=== PATIENT | female | born 1950 | race African-American/Black ===

== ENCOUNTER 2016-11-26 05:33 | Inpatient (IN) ==
[2016-11-26] MEDS ORDERED: FUROSEMIDE 100 MG/10 ML VIAL IV STA (06:17)
[2016-11-26] MEDS ORDERED: HYDROmorphone 2 MG/1 ML VIAL IV STA (06:20)
[2016-11-26] MEDS ORDERED: ONDANSETRON 4 MG/2 ML VIAL IV STA (06:20)
--- NOTE | 2016-11-26 06:21 | EKG Report ---
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
[2016-11-26] MEDS ORDERED: HYDROmorphone 2 MG/1 ML VIAL ONE (06:22)
[2016-11-26] MEDS ORDERED: ONDANSETRON 4 MG/2 ML VIAL ONE (06:22)
[2016-11-26] MEDS ORDERED: FUROSEMIDE 40 MG/4 ML VIAL ONE (06:22)
[2016-11-26 06:30] LABS: Basophils % 0.3 % (0.0-0.8); Eosinophils % 0.3 % (0.00-10.9); Hematocrit 20.6 VOL% (35.7-47.0); Immature Granulocytes % 0.8 %; Immature Granulocytes Absolute 0.06 #; Lymphocytes # 0.7 10*3/uL (1.4-4.0); Lymphocytes % 10.1 % (21.3-54.2); Mean Corpuscular HGB Conc 30.6 GM/DL (32-36); Mean Corpuscular Hemoglobin 27 PG (27-34); Mean Corpuscular Volume 86.9 FL (87-102); Mean Platelet Volume 11.3 FL (9.6-12.0); Monocytes # 0.5 10*3/uL (0.11-0.8); Monocytes % 6.7 % (1.7-12.7); NRBC # 0.03 10*3/uL; Neutrophils # 5.9 10*3/uL (1.4-7.4); Neutrophils % 81.8 % (38.7-73.9); Platelet Count 105 T/CUMM (130-400); Red Blood Count 2.37 MC/CUMM (3.8-5.5); Red Cell Distribution Width 18.6 % (9.3-17.3); White Blood Count 7.2 T/CUMM (4-12)
[2016-11-26 06:32] LABS: Hemoglobin 6.3 GM/DL (12.0-16.0)
[2016-11-26 06:38] LABS: Albumin 3.3 G/DL (3.4-5.0); Bilirubin,Total 0.8 MG/DL (0.2-1.0); Calcium 11.6 MG/DL (8.5-10.1); Magnesium 3.4 MG/DL (1.8-2.4); Potassium 3.2 MMOL/L (3.5-5.1); Total Protein 7.3 G/DL (6.4-8.3)
--- NOTE | 2016-11-26 06:53 | XRay Report ---
XR chest 1V portable Indication: Shortness of breath Comparison: CT 14 May 2016 Findings: The cardiac size is enlarged. Right subclavian Port-A-Cath is unchanged in position. The pulmonary vascularity is increased. There is bilateral lateral pulmonary densities, similar findings were present on previous CT. Impression: Increased pulmonary vascularity may indicate cardiac decompensation. Bilateral pulmonary densities, similar to previous CT appearance. PROCEDURE INTERPRETED AT [facility] DEPARTMENT OF RADIOLOGY Final Report Signed by: Dr. Dayron Wilson
--- NOTE | 2016-11-26 06:58 | Ultrasound Report ---
Venous Doppler ultrasound bilateral lower extremities Indication: Pain Comparison: None available Findings: No evidence of echogenic, noncompressible thrombus seen in the visualized veins of the extremities. Color Doppler venous waveform pattern is within normal limits. Impression: No evidence of deep venous thrombosis. Ultrasound images stored and captured. PROCEDURE INTERPRETED AT [facility] DEPARTMENT OF RADIOLOGY Final Report Signed by: Dr. Dayron Wilson
--- NOTE | 2016-11-26 08:32 | Emergency Department Note ---
Michi Brunson Meredith, am scribing for, and in the presence of, Murtaza Lange MD 06:14. Nazario Brunson Phillip K, MD, personally performed the services described in this documentation, ascribed by Yuko Borden in my presence, and it is both accurate and complete 832 . Arrival - Arrival Chief Complaint: Shortness of Breath ED Nursing Triage Note: Pt arrives via ems with complaints of getting short of breath from having pain. States that she woke up short of breath and was attempting to get pain medications and family called ems. Pt is on hospice for rectal cancer and states that she did not want to come but that she came. Pt is still complaining of pain and feeling short of breath. Complains of pain to right leg and pain to buttock area. Mode of Arrival: Stretcher Limitations: No Limitations Source: Patient, Family, Old Records Reviewed, RN Notes Reviewed Time Seen by Provider: 11/26/16 06:11 - History of Present Illness HPI Narrative: Pt is a 66 y/o black female brought to the ED by EMS with c/o shortness of breath and right leg pain which onset last night. She is on hospice for Rectal Cancer. Pt has a history of HTN, HLD, thyroid disorder, lung cancer, and ovarian cancer. Onset (ago): hour(s) Allergies/Adverse Reactions: Allergies Allergy/AdvReac Type Severity Reaction Status Date / Time No Known Allergies Allergy Verified 03/30/16 21:48 Home Medications: Home Medications Medication Instructions Recorded Confirmed Type Amlodipine Besylate 10 mg PO DAILY 08/18/15 09/27/16 History Ferrous Sulfate Tab [Feosol Tab] 325 mg PO DAILY 08/18/15 09/27/16 History Labetalol Tab [Trandate Tab] 300 mg PO BID 08/18/15 09/27/16 History hydrALAZINE TAB [Apresoline Tab] 100 mg PO TID 08/18/15 09/27/16 History Ondansetron Tab [Zofran Tab] 4 mg PO Q6H #40 tablet 11/22/15 09/27/16 Rx Ciprofloxacin Tab [Cipro Tab] 500 mg PO BID #14 tablet 09/27/16 Rx Megestrol Tab [Megace Tab] 80 mg PO BID 09/27/16 09/27/16 History Phenazopyridine HCl [Pyridium] 200 mg PO TID #9 tablet 09/27/16 Rx Review of System - Review of System 12 point system: reviewed and no additional remarkable complaints except as stated - Review of System Respiratory: Present: as per HPI, other (SOB) Musculoskeletal: Present: as per HPI, leg pain (right ) Medical,Surgical,& Family Hx - Medical History Cardio: History of: Hypertension Endocrine: History of: Dyslipidemia, Thyroid Disorder Respiratory: History of: Lung Cancer Genitourinary: History of: Bladder Problem (self cath Dr García) Reproductive: History of: Reproductive Cancer (OVARIAN/CERVICAL CA 2013) Other: History of: Cancer (rectal) - Surgical History HEENT Surgeries: Surgical HX of: Thyroid Surgery Reproductive Surgeries: Surgical HX of;: Hysterectomy - Social History Smoking Status: Never smoker Frequency of Alcohol Use: None Type of Drug Use: None Exam Vital Signs: Vital Signs Temperature 98.3 F 11/26/16 05:33 Pulse Rate 132 H 11/26/16 07:58 Respiratory Rate 22 11/26/16 07:58 Blood Pressure 169/98 11/26/16 07:58 O2 Sat by Pulse Oximetry 100 11/26/16 07:58 - General General appearance: alert, in no apparent distress - Head Head exam: Present: atraumatic, normocephalic - Eye Eye exam: Present: normal appearance, PERRL, EOMI - ENT ENT exam: Present: mucous membranes dry, normal external ear exam - Neck Neck exam: Present: full ROM, trachea midline. Absent: tenderness, meningismus , lymphadenopathy, thyromegaly - Chest Chest inspection: Present: symmetric chest wall rise. Absent: tenderness, rash - Respiratory Respiratory exam: Present: rales (bilateral) - Cardiovascular Cardiovascular exam: Present: tachycardia, irregular rhythm, murmur (machinery- type murmur). Absent: rubs, gallop - Abdominal Exam Abdominal exam: Present: soft, normal bowel sounds. Absent: distention, tenderness - Extremities Exam Extremities exam: Present: full ROM, normal capillary refill, pedal edema (1+ bilaterally). Absent: tenderness, calf tenderness - Back Exam Back exam: Present: full ROM. Absent: tenderness - Neurological Exam Neurological exam: Present: alert, oriented X3, CN II-XII intact. Absent: motor sensory deficit - Psychiatric Psychiatric exam: Present: normal affect, normal mood - Skin Skin exam: Present: warm, dry, intact, normal color Course Course Narrative: Admit to Dr. Hernandez for blood transfusion Results - Labs CBC & BMP: 11/26/16 05:42 11/26/16 05:42 Lab Results: I have reviewed the patients labs Labs: Laboratory Tests 11/26/16 05:42 WBC 7.2 RBC 2.37 L Hgb 6.3 L* Hct 20.6 L MCV 86.9 L MCHC 30.6 L RDW 18.6 H Plt Count 105 L Neut % (Auto) 81.8 H Lymph % (Auto) 10.1 L Lymph # (Auto) 0.7 L Laboratory Tests 11/26/16 05:42 Sodium 143 Potassium 3.2 L Chloride 102 Carbon Dioxide 25 Anion Gap 19.2 H BUN 67 H Creatinine 4.40 H Glucose 139 H Calculated Osmolality 305.0 H Calcium 11.6 H Magnesium 3.4 H AST 56 H Albumin 3.3 L Globulin 4.0 H Albumin/Globulin Ratio 0.8 L Laboratory Tests 11/26/16 05:42 D-Dimer, Quantitative 11.0 Laboratory Tests 11/26/16 05:42 B-Natriuretic Peptide 3713 H - EKG EKG results: interpreted by ERMD (sinus tachycardia with PVCs) - Diagnostic Findings Procedure: Chest x-ray: report reviewed by me, pending (Increased pulmonary vascularity may indicate cardiac decompensation. Bilateral pulmonary densities, similar to previous CT appearance. ), Ultrasound: report reviewed by me (Venous doppler: No evidence of deep venous thrombosis. ) Disposition Clinical Impression: Congestive heart failure, Anemia Case discussed with: patient, patient's family Disposition: Still a Patient Condition: Critical Additional Instructions: Admit to Dr. Hernandez
[2016-11-26] MEDS ORDERED: traMADol 50 MG TABLET PO PRN (08:38)
[2016-11-26] MEDS ORDERED: ACETAMINOPHEN 325 MG TABLET PO PRN (08:38)
[2016-11-26] MEDS ORDERED: diphenhydrAMINE CAP 25 MG CAPSULE PO PRN (08:38)
[2016-11-26] MEDS ORDERED: ALPRAZolam 0.25 MG TABLET PO PRN (08:38)
[2016-11-26] MEDS ORDERED: guaiFENesin 200 MG/10 ML UDCUP PO PRN (08:38)
[2016-11-26] MEDS ORDERED: TEMAZEPAM 7.5 MG CAPSULE PO PRN (08:38)
[2016-11-26] MEDS ORDERED: MYLANTA/LIDO VISC 2:1 300 ML BOTTLE SWISH/SWAL PRN (08:38)
[2016-11-26] MEDS ORDERED: chlorproMAZINE 25 MG TABLET PO PRN (08:38)
[2016-11-26] MEDS ORDERED: BENZTROPINE 2 MG/2 ML AMP IV PRN (08:38)
[2016-11-26] MEDS ORDERED: SODIUM CHLORIDE 0.9% 250 ML IV PRN (08:38)
[2016-11-26] MEDS ORDERED: ONDANSETRON 4 MG/2 ML VIAL IV PRN (08:38)
[2016-11-26] MEDS ORDERED: MAGNESIUM HYDROXIDE SUSP 30 ML UDCUP PO PRN (08:38)
[2016-11-26] MEDS ORDERED: MYLANTA/LIDO VISC 2:1 300 ML BOTTLE SWISH/SPIT PRN (08:38)
[2016-11-26] MEDS ORDERED: PROMETHAZINE INJ 25 MG in SODIUM CHLORIDE 0.9% 50 ML IV PRN (08:38)
[2016-11-26] MEDS ORDERED: LACTULOSE 20 GM/30 ML UDCUP PO PRN (08:38)
[2016-11-26] MEDS ORDERED: ALUMINUM/MAGNES/SIMETH MAX STR 30 ML UDCUP PO PRN (08:38)
[2016-11-26] MEDS ORDERED: LOPERAMIDE 2 MG CAPSULE PO PRN ×2 (08:38)
[2016-11-26] MEDS ORDERED: LORazepam 2 MG/1 ML VIAL IV ONE (10:48)
--- NOTE | 2016-11-26 17:51 | Oncology History&Physical ---
Assessment and Plan (1) Endometrial cancer Status: Acute Assessment and plan: I had a lengthy discussion today with Mrs. Cazares's family. They now understand her very poor prognosis and that there are no other treatment options for her malignancy. It appears that she has not discussed this with him before. We will make her DNR. We will go ahead and complete her blood transfusion. I will set her up for a CT scan of her head since she had some seizure activity to look for brain metastases. However, there is likely nothing we will do if we find a metastatic lesion. I do not see any benefit to doing a full body CT scan is unlikely only showed worsening diffuse metastatic disease which we are already aware of. My main goal at this point is to keep her comfortable and hopefully get her back home with home hospice in the next few days. Current Visit: Yes (2) Bone metastases Status: Acute Current Visit: Yes (3) Lung metastases Status: Acute Current Visit: Yes (4) Congestive heart failure Status: Acute Current Visit: Yes (5) Anemia Status: Acute Current Visit: Yes History of Present Illness History of present illness: Ms. Cazares is a 66 year old female with metastatic endometrial cancer who is been to numerous lines of chemotherapy and antiestrogen therapy has had significant progression of disease within the last few months. She was last in clinic to see me in June of last year at which time I told her there were no other treatment options. She was going to think about going on hospice at that time but she never returned for a follow-up visit. She was subsequently placed on home hospice at some point in the last couple months by an outside physician. She presented to emergency room this morning complaining of shortness of breath and was found to be anemic. Her family at that time decided that they wanted her full code and to revoke hospice. She was admitted for transfusion and diuresis. Home Medications Medication Instructions Recorded Confirmed Type Ferrous Sulfate Tab [Feosol Tab] 325 mg PO DAILY 08/18/15 11/26/16 History Labetalol Tab [Trandate Tab] 300 mg PO BID 08/18/15 11/26/16 History hydrALAZINE TAB [Apresoline Tab] 100 mg PO TID 08/18/15 11/26/16 History Ondansetron Tab [Zofran Tab] 4 mg PO Q6H #40 tablet 11/22/15 11/26/16 Rx Ciprofloxacin Tab [Cipro Tab] 500 mg PO BID #14 tablet 09/27/16 11/26/16 Rx Megestrol Tab [Megace Tab] 80 mg PO BID 09/27/16 11/26/16 History Phenazopyridine HCl [Pyridium] 200 mg PO TID #9 tablet 09/27/16 11/26/16 Rx Docusate Sodium [Colace Clear] 50 mg PO BEDTIME 11/26/16 11/26/16 History HYDROcodone/ACETAMIN 10-325 [[place] 1 tablet PO Q4H 11/26/16 11/26/16 History 10-325] Rosuvastatin [Crestor] 20 mg PO BEDTIME 11/26/16 11/26/16 History Temazepam [Restoril] 30 mg PO BEDTIME 11/26/16 11/26/16 History amLODIPine [Norvasc] 10 mg PO DAILY 11/26/16 11/26/16 History Allergies Allergy/AdvReac Type Severity Reaction Status Date / Time No Known Allergies Allergy Verified 03/30/16 21:48 Medical,Surgical,& Family Hx - Medical History Cardio: History of: Hypertension Endocrine: History of: Dyslipidemia, Thyroid Disorder Respiratory: History of: Lung Cancer Genitourinary: History of: Bladder Problem (self cath Dr García) Reproductive: History of: Reproductive Cancer (OVARIAN/CERVICAL CA 2013) Other: History of: Cancer (rectal) - Surgical History HEENT Surgeries: Surgical HX of: Thyroid Surgery Reproductive Surgeries: Surgical HX of;: Hysterectomy - Social History Smoking Status: Never smoker Frequency of Alcohol Use: None Type of Drug Use: None ROS unobtainable: due to mental status Exam - Constitutional Vitals: Period Temp Pulse Resp BP Sys/Booth Pulse Ox Last 24 Hr 96.6 F-98.5 F 79-153 12- 98-184/66-93 90-100 General appearance: normal weight, no acute distress - Head Head Exam: Present: normocephalic, atraumatic - Eye Eye Exam: Present: EOMI Pupils: Present: PERRL - ENT ENT exam: Present: normal exam, normal oropharynx - Neck Neck exam: Absent: lymphadenopathy, thyromegaly - Respiratory Respiratory exam: Present: CTAB. Absent: wheezes - Cardiovascular Cardiovascular exam: Present: RRR. Absent: JVD - GI/Abdominal GI/Abdominal exam: Present: soft. Absent: ascites, distended, mass - Neurological Exam Neurological exam: Present: altered - Skin Skin exam: Present: warm, dry Results - Labs CBC & BMP: 11/26/16 05:42 11/26/16 05:42 Lab Results: I have reviewed the past 24 hour labs
[2016-11-26] MEDS ORDERED: HEPARIN LOCK FLUSH 500 UNIT/5 ML SYRINGE IV ONE (20:20)
[2016-11-26] MEDS: hydrALAZINE 20 MG/1 ML VIAL IV PRN (21:07)
[2016-11-27] MEDS ORDERED: HEPARIN LOCK FLUSH 500 UNIT/5 ML SYRINGE IV ONE (03:54)
[2016-11-27] MEDS: hydrALAZINE 20 MG/1 ML VIAL IV PRN ×3 (04:21→23:34)
--- NOTE | 2016-11-27 08:07 | Oncology Progress Note ---
Assessment and Plan (1) Endometrial cancer Status: Acute Assessment and plan: I had a lengthy discussion today with Mrs. Cazares's family. They now understand her very poor prognosis and that there are no other treatment options for her malignancy. It appears that she has not discussed this with him before. We will make her DNR. We will go ahead and complete her blood transfusion. I will set her up for a CT scan of her head since she had some seizure activity to look for brain metastases. However, there is likely nothing we will do if we find a metastatic lesion. I do not see any benefit to doing a full body CT scan is unlikely only showed worsening diffuse metastatic disease which we are already aware of. My main goal at this point is to keep her comfortable and hopefully get her back home with home hospice in the next few days. Current Visit: Yes (2) Bone metastases Status: Acute Current Visit: Yes (3) Lung metastases Status: Acute Current Visit: Yes (4) Congestive heart failure Status: Acute Current Visit: Yes (5) Anemia Status: Acute Current Visit: Yes Oncology Subjective PN Interval history: Mrs. Cazares feels better today. She is status post 2 units of blood. She does not want to have a CT scan of her head which is fine with me given that our goals are only comfort at this time. We discussed being discharged home tomorrow. She states she does not want to go back on hospice as she would like to come to the hospital weeks time she feels bad. I told her that is completely up to her but explained to her the prognosis associated with her cancer and that there is no good treatment for this. She understands this and said she will think about the her hospice options. We will keep an hospital one more day due to her seizure-like activity yesterday. Her kidney function is quite poor and she does not complain of shortness of breath I'll actually hold off on giving her a dose of Lasix today. Exam - Constitutional Vitals: Period Temp Pulse Resp BP Sys/Booth Pulse Ox Last 24 Hr 96.2 F-98.5 F 79-153 09-25 98-192/66-106 90-100 Results - Labs CBC & BMP: 11/26/16 05:42 11/26/16 05:42
[2016-11-27 11:10] LABS: Basophils % 0.2 % (0.0-0.8); Eosinophils # 0.1 10*3/uL (0.0-0.87); Eosinophils % 0.8 % (0.00-10.9); Hematocrit 26.3 VOL% (35.7-47.0); Immature Granulocytes % 1.1 %; Immature Granulocytes Absolute 0.07 #; Lymphocytes # 0.6 10*3/uL (1.4-4.0); Lymphocytes % 8.3 % (21.3-54.2); Mean Corpuscular HGB Conc 29.7 GM/DL (32-36); Mean Corpuscular Hemoglobin 26 PG (27-34); Mean Corpuscular Volume 87.7 FL (87-102); Mean Platelet Volume 11.6 FL (9.6-12.0); Monocytes # 0.6 10*3/uL (0.11-0.8); Monocytes % 8.5 % (1.7-12.7); NRBC # 0.06 10*3/uL; Neutrophils # 5.4 10*3/uL (1.4-7.4); Neutrophils % 81.1 % (38.7-73.9); White Blood Count 6.6 T/CUMM (4-12)
[2016-11-27 11:11] LABS: Hemoglobin 7.8 GM/DL (12.0-16.0)
[2016-11-27 11:12] LABS: Platelet Count 77 T/CUMM (130-400)
[2016-11-27 11:27] LABS: Elliptocytes Few; Hypochromasia 1+; Platelet Estimate Decreased
[2016-11-27] MEDS: MORPHINE 2 MG/1 ML SYRINGE IV PRN ×3 (14:59→23:33)
[2016-11-27] MEDS ORDERED: FUROSEMIDE 40 MG/4 ML VIAL IV SCH (16:00)
--- NOTE | 2016-11-28 09:22 | Discharge Summary ---
Hospital Course - Hospital Course Hospital Course: This is a 66-year-old female with advanced uterine cancer who is been through numerous lines of chemotherapy and antiestrogen therapy who was recently placed on hospice by an outside physician but was admitted 2 days ago with shortness of breath and weakness. She was found to be severely anemic. She and her family did not truly understand what hospice was or advanced her disease is. I had a lengthy discussion with him during her hospital stay and they seem to understand about this is a terminal illness and she will not likely survive but a few more months. There is no further chemotherapy to offer her. She would be best served by being at home on hospice for the remainder of her life. They have agreed to do this will be discharged home today. We will reinitiate hospice. They would like to have oxygen through the hospice company as this makes her more comfortable. She also states to [place] that she was taken is not adequate enough to control her pain swallow right her a prescription for immediate release morphine to go along with her annual patches. We will notify hospice that she is being discharged home today. Diagnosis - Discharge Diagnosis (1) Endometrial cancer Status: Acute (2) Bone metastases Status: Acute (3) Lung metastases Status: Acute (4) Congestive heart failure Status: Acute (5) Anemia Status: Acute Discharge Plan - Discharge Data Disposition: Hospice - Home Condition at Discharge: Stable Discharge Diet: advance to your usual diet Activity: resume usual activities as tolerated Hygiene: no restrictions Weight Bearing at Discharge: weight bear as tolerated - Discharge Medications New Morphine Ir Tab [Morphine IR Tab] 15 mg PO Q4HR PRN #90 tablet PRN Reason: Pain Albuterol Sulfate [Ventolin HFA] 2 puff INH Q6H PRN #1 inhaler PRN Reason: Shortness Of Breath/Wheezing Continue hydrALAZINE TAB [Apresoline Tab] 100 mg PO TID Labetalol Tab [Trandate Tab] 300 mg PO BID Ondansetron Tab [Zofran Tab] 4 mg PO Q6H #40 tablet amLODIPine [Norvasc] 10 mg PO DAILY Docusate Sodium [Colace Clear] 50 mg PO BEDTIME Temazepam [Restoril] 30 mg PO BEDTIME Discontinued Ferrous Sulfate Tab [Feosol Tab] 325 mg PO DAILY Megestrol Tab [Megace Tab] 80 mg PO BID Ciprofloxacin Tab [Cipro Tab] 500 mg PO BID #14 tablet HYDROcodone/ACETAMIN 10-325 [[place] 10-325] 1 tablet PO Q4H Phenazopyridine HCl [Pyridium] 200 mg PO TID #9 tablet Rosuvastatin [Crestor] 20 mg PO BEDTIME - Follow Up or Referral - Forms/Instructions Exam - Constitutional Vitals: Period Temp Pulse Resp BP Sys/Booth Pulse Ox Last 24 Hr 97.6 F-98.6 F 20-102 18-20 109-156/71-86 96-100 Discharge Results Procedures and tests throughout hospitalization: Pending Orders 11/26/16 08:38 Urinalysis Routine Labs on day of discharge: Labs from last 24 hours 11/27/16 05:39 WBC 6.6 RBC 3.00 L D Hgb 7.8 L D Hct 26.3 L MCV 87.7 MCH 26 L MCHC 29.7 L RDW 19.0 H Plt Count 77 L D MPV 11.6 Neut % (Auto) 81.1 H Lymph % (Auto) 8.3 L [place] % (Auto) 8.5 Eos % (Auto) 0.8 Baso % (Auto) 0.2 Neut # (Auto) 5.4 Lymph # (Auto) 0.6 L [place] # (Auto) 0.6 Eos # (Auto) 0.1 Baso # (Auto) 0.0 Immature Gran % 1.1 Nucleated RBC % 0.9 Immature Gran # 0.07 Nucleated RBCs # 0.06 Platelet Estimate Decreased Hypochromasia 1+ Elliptocytes Few Morphology Comment DS: Provider Date of admission: 11/26/16 08:36 Primary care physician: . No PCP Attending physician on admission: Mian Hernandez MD Consults: 11/26/16 09:43 Consult to Pharmacy [CONS] Routine Reason for Pharmacy Consult: Adjust Meds Renal Funct Discharging clinician: Mian Hernandez MD
[2016-11-28 09:33] VITALS: BP 144/83
[2016-11-28] MEDS ORDERED: HEPARIN LOCK FLUSH 500 UNIT/5 ML SYRINGE IV ONE (10:55)
== END 2016-11-28 12:00 | disposition hospice, home (50) | DRG 812 ==
LOC: EDUNIT# → EDBD → N.ED 05:33 → N.EDINP 08:36 → N.4E 09:35
PROVIDERS: ADMIT Specialist; ATTEND Specialist